=== PATIENT | female | born 1935 | race Caucasian/White ===

== ENCOUNTER 2017-12-31 02:07 | Inpatient (IN) | payer MEDICARE, BC ==
[~2017-12-31] VITALS: Ht 152.4 cm; Wt 50.8 kg
--- NOTE | 2017-12-31 02:10 | NUR ---
GIZZARD SKIN REMOVER HERE TO SEE PT.WHEN I ASKED HER ABOUT PTS MEDS AND ALLERGIES,SHE DID NOT KNOW.INFORMED GIZZARD SKIN REMOVER SHE WOULD NEED TO BRING IN MEDS FOR PT AND SOME MEDICAL INFO.PT AGREED
[2017-12-31] MEDS ORDERED: TRAZODONE 50 MG TABLET PO (02:34)
[2017-12-31] MEDS ORDERED: ATORVASTATIN 10 MG TABLET PO (02:34)
[2017-12-31] MEDS ORDERED: LORAZEPAM 2 MG/1 ML VIAL IM ONE (03:15)
--- NOTE | 2017-12-31 03:21 | NUR ---
Note melisa in ED - 12/31/17 at 0616 by MACKENZIE Pt appears anxious, agitated. Pt is coughing, appears short of breath, tachypneic, respirations labored. MD notified and aware.
[2017-12-31 03:31] LABS: EOSINOPHILS # (AUTO) 0.1 K/uL (0.0-0.7); EOSINOPHILS % (AUTO) 1.6 % (0.0-7.0); HEMATOCRIT 36.8 % (31.2-41.9); HEMOGLOBIN 12.5 g/dL (10.9-14.3); LYMPHOCYTES # (AUTO) 1.2 K/uL (20.0-40.0); LYMPHOCYTES % (AUTO) 25.5 % (20.5-51.5); MEAN CORPUSCULAR HEMOGLOBIN 31.6 uug (24.7-32.8); MEAN CORPUSCULAR HGB CONC 34 g/dL (32.3-35.6); MEAN CORPUSCULAR VOLUME 93.4 fL (75.5-95.3); MONOCYTES # (AUTO) 0.4 K/uL (2.0-10.0); MONOCYTES % (AUTO) 8.3 % (0.0-11.0); NEUTROPHILS % (AUTO) 63.6 % (38.5-71.5); PLATELET COUNT (AUTO) 276 K/uL (179-408); RED BLOOD CELL COUNT(AUTO) 3.94 MIL/uL (3.63-4.92); WHITE BLOOD COUNT (AUTO) 4.7 K/uL (3.8-11.8)
[2017-12-31 03:40] LABS: CARBON DIOXIDE 26 mmol/L (21-32); CHLORIDE 102 mmol/L (98-107); CREATININE 0.9 mg/dL (0.6-1.3); GLUCOSE 186 mg/dL (74-106); POTASSIUM 3.3 mmol/L (3.5-5.1); UREA NITROGEN, BLOOD 27 mg/dL (7-18)
[2017-12-31] MEDS ORDERED: LORAZEPAM 2 MG/1 ML VIAL ONE (03:47)
[2017-12-31 03:54] LABS: ALANINE AMINOTRANSFERASE 23 U/L (14-59); ALKALINE PHOSPHATASE 62 U/L (50-136); ASPARTATE AMINOTRANSFERASE 16 U/L (15-37); BILIRUBIN,DIRECT 0.1 mg/dL (0.0-0.2); BILIRUBIN,TOTAL 0.6 mg/dL (0.2-1.0); TOTAL PROTEIN, SERUM 6.9 g/dL (6.4-8.2)
[2017-12-31 03:55] LABS: THYROID STIMULATING HORMONE 12.287 mIU/mL (0.358-3.740)
[2017-12-31 04:02] LABS: ETHANOL < 3 MG/DL (0-0)
--- NOTE | 2017-12-31 04:31 | NUR ---
JUAN Mills (POWER OF SKULL SPLITTER) [phone]
--- NOTE | 2017-12-31 06:58 | NUR ---
SERAFIN (PT POWER OF BRANCHER) CAME BY TO VISIT PT AND STATED THAT SHE FORGOT TO BRING THE MEDICATION LIST AND WILL CALL ONE OF THE CAREGIVERS TO PROVIDE MED LIST.
[2017-12-31] MEDS ORDERED: ATEN25TA PO (07:41)
[2017-12-31] MEDS ORDERED: DOXY25TA60 PO (07:41)
[2017-12-31] MEDS ORDERED: LEVO75TA7 PO (07:41)
[2017-12-31] MEDS ORDERED: TRIA1TAB4 PO (07:41)
--- NOTE | 2017-12-31 08:25 | NUR ---
REC'D REPORT FROM DEV RN, PT SLEEPING, NO DISTRESS NOTED. AWAITING FOR [employer] ENRICHMENT MANAGER ARRIVAL.
--- NOTE | 2017-12-31 11:56 | NUR ---
PT SLEEPING DIAPER PLACED, BELONGINGS LIST DONE, ADMIT ORDERVBWRITTEN, CALLED [facility] REGARDING BED STATUS SPOKE TO PARUL RN, WHOM STATED DR BARRIOS NEEDED TO RE-EVALUATE THE THE CURRENT PT IN PRIOR TO TRANSFER TO FLOOR AND THEN CLEAN BED AND THEN [facility] WILL CALL ME. PRESENTLY AT THE BEDSIDE THERE IS A CAREGIVER.
--- NOTE | 2017-12-31 13:37 | NUR ---
PT SLEEPING, [facility] OR GLACIER GUIDE STATED RM CHANGE, AT THIS AWAITING FOR NEW RM INFO, CAREGIVER AT BEDSIDE, NO DISTRESS NOTED.
--- NOTE | 2017-12-31 15:10 | NUR ---
SBAR RE[place] TO CHELSY HERNANDEZ [place] [facility] [place] TRANSP[place] [facility]IA [facility] TO RM 137[facility].
[2017-12-31] MEDS ORDERED: MAG HYDROX/AL HYDROX/SIMETH 30 ML LIQUID UDC PO PRN (15:45)
[2017-12-31] MEDS ORDERED: ZOLPIDEM 5 MG TABLET PO PRN (15:45)
[2017-12-31] MEDS ORDERED: MAGNESIUM HYDROXIDE 30 ML LIQUID UDC PO PRN (15:45)
[2017-12-31 16:45] VITALS: BP 116/79
[2017-12-31 20:00] VITALS: BP 110/53
[2017-12-31] MEDS: Z GUARD REMEDY PASTE 57 GM TUBE TOP SCH (20:49)
[2017-12-31] MEDS ORDERED: ATORVASTATIN 10 MG PO SCH (21:00)
[2018-01-01] MEDS: Z GUARD REMEDY PASTE 57 GM TUBE TOP PRN (05:23)
[2018-01-01 07:30] VITALS: BP 152/74
[2018-01-01] MEDS: LORAZEPAM 0.5 MG TABLET PO PRN ×3 (08:02→16:22)
[2018-01-01] MEDS: LEVOTHYROXINE SODIUM 75 MCG TABLET PO SCH (08:23)
[2018-01-01] MEDS: ATENOLOL 25 MG TABLET PO SCH ×2 (08:24→16:32)
[2018-01-01] MEDS: Z GUARD REMEDY PASTE 57 GM TUBE TOP SCH ×2 (08:25→20:04)
[2018-01-01] MEDS: TRIAMTERENE/HCTZ 75-50 MG TABLET PO SCH (09:00)
[2018-01-01] MEDS ORDERED: Medication Not On Formulary EA (Triamterene/Hydrochlorothiazid (Triamterene-Hctz 37.5-25 PO SCH (09:00)
[2018-01-01 16:38] VITALS: BP 120/51
[2018-01-01 19:30] VITALS: BP 151/67
[2018-01-01] MEDS: QUETIAPINE FUMARATE 25 MG TABLET PO SCH (20:04)
[2018-01-01] MEDS: ATORVASTATIN 10 MG TABLET PO SCH (20:04)
[2018-01-01] MEDS: MEMANTINE HCL 5 MG TABLET PO SCH (20:04)
[2018-01-02] MEDS: ACETAMINOPHEN 325 MG TABLET PO PRN (03:10)
[2018-01-02] MEDS: LORAZEPAM 0.5 MG TABLET PO PRN ×3 (03:10→17:34)
[2018-01-02] MEDS: Z GUARD REMEDY PASTE 57 GM TUBE TOP PRN (06:15)
[2018-01-02 07:30] VITALS: BP 120/50
[2018-01-02] MEDS: ATENOLOL 25 MG TABLET PO SCH ×3 (09:00→17:34)
[2018-01-02] MEDS: LEVOTHYROXINE SODIUM 75 MCG TABLET PO SCH ×2 (09:00→13:59)
[2018-01-02] MEDS: TRIAMTERENE/HCTZ 75-50 MG TABLET PO SCH ×2 (09:00→13:59)
[2018-01-02] MEDS: DONEPEZIL 10 MG TABLET PO SCH ×2 (09:00→13:59)
[2018-01-02] MEDS: MEMANTINE HCL 5 MG TABLET PO SCH ×3 (09:00→20:29)
[2018-01-02] MEDS: Z GUARD REMEDY PASTE 57 GM TUBE TOP SCH ×2 (10:09→20:28)
[2018-01-02 15:36] VITALS: BP 110/59
[2018-01-02 19:30] VITALS: BP 135/42
[2018-01-02] MEDS: ATORVASTATIN 10 MG TABLET PO SCH (20:29)
[2018-01-02] MEDS: QUETIAPINE FUMARATE 25 MG TABLET PO SCH (20:30)
[2018-01-03] MEDS: Z GUARD REMEDY PASTE 57 GM TUBE TOP PRN (06:08)
[2018-01-03 07:30] VITALS: BP 141/48
[2018-01-03] MEDS: DONEPEZIL 10 MG TABLET PO SCH (09:05)
[2018-01-03] MEDS: MEMANTINE HCL 5 MG TABLET PO SCH ×2 (09:05→20:01)
[2018-01-03] MEDS: LORAZEPAM 0.5 MG TABLET PO PRN ×2 (09:05→15:45)
[2018-01-03] MEDS: ATENOLOL 25 MG TABLET PO SCH ×2 (09:06→16:25)
[2018-01-03] MEDS: TRIAMTERENE/HCTZ 75-50 MG TABLET PO SCH (09:06)
[2018-01-03] MEDS: LEVOTHYROXINE SODIUM 75 MCG TABLET PO SCH (09:06)
[2018-01-03] MEDS: QUETIAPINE FUMARATE 25 MG TABLET PO SCH ×3 (09:07→20:01)
[2018-01-03] MEDS: Z GUARD REMEDY PASTE 57 GM TUBE TOP SCH ×2 (09:07→20:01)
--- NOTE | 2018-01-03 15:03 | NUR ---
Initial Discharge Instructions: Patient currently resides at home with 24/7 caregiving [[id number] [place] [address]; [phone]]. Spoke with patient's DPOAClaribel ([phone]) who reports the patient can return home with 24/7 care when ready. SW will continue to collaborate with pt, family, and MD regarding appropriate discharge plans for this patient. SW will form a safe and proper discharge plan.
[2018-01-03 16:17] VITALS: BP 108/49
[2018-01-03 20:00] VITALS: BP 112/56
[2018-01-03] MEDS: ATORVASTATIN 10 MG TABLET PO SCH (20:01)
[2018-01-04 07:30] VITALS: BP 152/60
[2018-01-04] MEDS: MEMANTINE HCL 5 MG TABLET PO SCH ×2 (08:28→20:37)
[2018-01-04] MEDS: LEVOTHYROXINE SODIUM 75 MCG TABLET PO SCH (08:28)
[2018-01-04] MEDS: ATENOLOL 25 MG TABLET PO SCH ×2 (08:28→17:08)
[2018-01-04] MEDS: DONEPEZIL 10 MG TABLET PO SCH (08:28)
[2018-01-04] MEDS: QUETIAPINE FUMARATE 25 MG TABLET PO SCH ×2 (08:28→20:37)
[2018-01-04] MEDS: Z GUARD REMEDY PASTE 57 GM TUBE TOP SCH ×2 (08:32→20:57)
[2018-01-04] MEDS: TRIAMTERENE/HCTZ 75-50 MG TABLET PO SCH (08:40)
[2018-01-04] MEDS ORDERED: BISACODYL 5 MG TABLET.DR PO PRN (10:30)
--- NOTE | 2018-01-04 14:46 | NUR ---
Patient is confused, and disorganized. Consumed 75% of meals. no signs of discomfort and pain. no BM for 3 days. SHEEP RANCHER aware. ordered bisacodyl 10mg PRN given. Medication given thru apple sauce. tolerated well. will continue monitor
[2018-01-04 15:32] VITALS: BP 119/65
[2018-01-04 19:30] VITALS: BP 128/48
--- NOTE | 2018-01-04 20:00 | NUR ---
RECEIVED PATIENT IN HER ROOM IN BED. SHE IS NOTED AWAKE, A/O X 1. (TO NAME ONLY) WHEN ASKED, WHERE SHE IS? SHE STATED, "I AM IN A HOTEL, AND I JUST HAD DINNER WITH MY FRIEND AND I AM SUPPOSED TO MEET WITH MY FRIENDS. BRING ME THE PHONE." SHE IS NOTED TANGENTAL, CONFUSED, DISORGANIZED, BLUNTED AFFECT. IMPAIRED INSIGHT AND JUDGMENT NOTED TO THE REASON FOR HER ADMISSION TO [facility]. PATIENT NEEDS ASSISTANCE WITH AMBULATION AND TOILET. WILL TAKE HER MEDICATION CRUSHED AND IN APPLE SAUCE. SAFETY WAS EMPHASIS. BED AT LOWEST POSITION WITH WHEELS LOCKED, SIDE RAIL UP X 3, BED ALARM ON AND FREQUENT HEAD CHECKS.
[2018-01-04] MEDS: ATORVASTATIN 10 MG TABLET PO SCH (20:37)
[2018-01-05 07:12] LABS: CARBON DIOXIDE 24 mmol/L (21-32); CHLORIDE 101 mmol/L (98-107); CREATININE 1.3 mg/dL (0.6-1.3); GLUCOSE 224 mg/dL (74-106); POTASSIUM 4.3 mmol/L (3.5-5.1); UREA NITROGEN, BLOOD 36 mg/dL (7-18)
[2018-01-05 07:30] VITALS: BP 107/59
[2018-01-05] MEDS: ACETAMINOPHEN 325 MG TABLET PO PRN ×2 (08:18→13:47)
[2018-01-05] MEDS: LEVOTHYROXINE SODIUM 75 MCG TABLET PO SCH (08:19)
[2018-01-05] MEDS: MEMANTINE HCL 5 MG TABLET PO SCH ×2 (08:19→21:00)
[2018-01-05] MEDS: Z GUARD REMEDY PASTE 57 GM TUBE TOP SCH ×2 (08:19→20:29)
[2018-01-05] MEDS: DONEPEZIL 10 MG TABLET PO SCH (08:20)
[2018-01-05] MEDS: QUETIAPINE FUMARATE 25 MG TABLET PO SCH ×2 (08:20→21:00)
[2018-01-05] MEDS: ATENOLOL 25 MG TABLET PO SCH ×2 (08:28→16:58)
[2018-01-05] MEDS: TRIAMTERENE/HCTZ 75-50 MG TABLET PO SCH (08:28)
[2018-01-05] MEDS: LORAZEPAM 0.5 MG TABLET PO PRN (13:48)
--- NOTE | 2018-01-05 15:16 | NUR ---
Gps/Lvn0 Moans , calling out , c/o lower back pain, unable to fine right position. Offered tylenol 650 mg with lower ext. elevated on foot rest. ,kept comfortable, claimed she's too cold extra blanket offered to keep her warm, patient fell asleep after.
--- NOTE | 2018-01-05 19:45 | NUR ---
RECEIVED PATIENT IN THE HALLWAY SITTING IN A CLARICE CHAIR SLEEPING BUT EASILY AROUSABLE. SHE IS NOTED A/O X 1, CONFUSED, DISORGANIZED. FLAT AFFECT, LOW MOOD NOTED. IMPAIRED INSIGHT NOTED INTO THE REASON FOR HER ADMISSION. SAFETY EMPHASIS. WILL CONTINUE TO MONITOR.
[2018-01-05 20:00] VITALS: BP 108/41
[2018-01-05] MEDS: ATORVASTATIN 10 MG TABLET PO SCH (21:00)
--- NOTE | 2018-01-05 21:45 | NUR ---
Nurse Trailer Chief was notified of doctor's order of transferring patient to the ER.
--- NOTE | 2018-01-05 22:00 | NUR ---
Approach patient to give the medication at 2044. the patient was lethargic, unable to response verbally, unable to drink, unable to take medications, only moving her legs, and some resistance on her hands. vital signs was taken, BP:96/49, HR:51, O2 SAT:100%, RR:18. Legs of the bed were elevated. Checked again at 2099, VS was BP:97/46, HR:53, O2 SAT:99%, RR:18, she continued to be lethargic, unable to drink, unable to response verbally, only moving lower extremities and some resistance on her hands. Called cogeneration operator Doctor Brent Huerta at 2129 and according to doctors' order, the patient was transferred to the ER at 2139. VS at time of transferring to the ER was BP:133/49, HR:53, O2 SAT:100%, RR:18.
--- NOTE | 2018-01-06 01:14 | NUR ---
RECEIVED A CALL FROM NURSE IN THE ER. PATIENT WILL BE ADMITTED TO TELE UNIT ROOM 228 WITH ANDREEA PULIDO. PATIENT STILL ON 14 DA[address] HOLD[address] WILL NOTIFY DR BARRIOS.
[2018-01-06] MEDS ORDERED: BISA10SU8 RC (01:31)
[2018-01-06] MEDS ORDERED: QUET25TA PO (01:31)
[2018-01-06] MEDS ORDERED: MEMA5TAB PO (01:31)
[2018-01-06] MEDS ORDERED: MAGN400O6 PO (01:31)
[2018-01-06] MEDS ORDERED: TRIA1TAB5 PO (01:31)
[2018-01-06] MEDS ORDERED: LORA0.5T PO (01:31)
[2018-01-06] MEDS ORDERED: DONE5TAB7 PO (01:31)
[2018-01-06] MEDS ORDERED: MAG355OR18 PO (01:31)
--- NOTE | 2018-01-06 11:14 | NUR ---
Firearms Report: Desktop Publishing Operator completed and submitted [employer] Firearms report on 01/06/18 for [address] Disability Certification.
== END 2018-01-06 01:19 | disposition short-term general hospital (02) | DRG 885 ==
LOC: ER 02:11 → GPS 15:01
PROVIDERS: ADMIT Psychiatry & Neurology Psychiatry; ATTEND Internal Medicine
DX: F29 Unspecified psychosis not due to a substance or known physiological condition (principal); F03.91 Unspecified dementia, unspecified severity, with behavioral disturbance; G47.00 Insomnia, unspecified; Z91.83 Wandering in diseases classified elsewhere; E03.9 Hypothyroidism, unspecified; E78.5 Hyperlipidemia, unspecified; I10 Essential (primary) hypertension; F41.9 Anxiety disorder, unspecified; N28.9 Disorder of kidney and ureter, unspecified; F41.0 Panic disorder [episodic paroxysmal anxiety]; E87.6 Hypokalemia; Z79.899 Other long term (current) drug therapy
CPT/HCPCS: 36415; 70450; 71045; 82306; 83605; 84443; 85025; 85730; 87040; 93005; 97110; 97116; 97530; A4663; G0480; J2060

== ENCOUNTER 2018-01-05 21:45 | Inpatient (IN) | payer MEDICARE, BC ==
[~2018-01-05] VITALS: Ht 165.1 cm; Wt 53.1 kg
[~2018-01-05 21:45] MED LIST: ATEN25TA PO; ATORVASTATIN 10 MG TABLET PO; DOXY25TA60 PO; LEVO75TA7 PO; TRAZODONE 50 MG TABLET PO; TRIA1TAB4 PO
[2018-01-05 22:08] LABS: BASOPHILS # (AUTO) 0.1 K/uL (0.0-8.0); EOSINOPHILS # (AUTO) 0.1 K/uL (0.0-0.7); EOSINOPHILS % (AUTO) 1.9 % (0.0-7.0); HEMATOCRIT 40.4 % (31.2-41.9); HEMOGLOBIN 13.5 g/dL (10.9-14.3); LYMPHOCYTES # (AUTO) 2.2 K/uL (20.0-40.0); LYMPHOCYTES % (AUTO) 32.7 % (20.5-51.5); MEAN CORPUSCULAR HEMOGLOBIN 31.3 uug (24.7-32.8); MEAN CORPUSCULAR HGB CONC 33 g/dL (32.3-35.6); MEAN CORPUSCULAR VOLUME 93.8 fL (75.5-95.3); MONOCYTES # (AUTO) 0.7 K/uL (2.0-10.0); MONOCYTES % (AUTO) 10.8 % (0.0-11.0); NEUTROPHILS # (AUTO) 3.6 K/uL (1.8-8.9); NEUTROPHILS % (AUTO) 53.6 % (38.5-71.5); PLATELET COUNT (AUTO) 248 K/uL (179-408); WHITE BLOOD COUNT (AUTO) 6.8 K/uL (3.8-11.8)
[2018-01-05] MEDS ORDERED: IV NORMAL SALINE 1000 ML BAG IV ONE (22:15)
[2018-01-05] MEDS ORDERED: VANCOMYCIN IV 1,000 MG in IV DEXTROSE 5% 250 ML IV ONE (22:15)
[2018-01-05] MEDS ORDERED: GENTAMICIN SULFATE INJ 80 MG in IV DEXTROSE 5% 100 ML IV ONE (22:15)
[2018-01-05] MEDS ORDERED: CEFTRIAXONE 1 G in IV DEXTROSE 5% 50 ML IV ONE (22:15)
[2018-01-05 22:19] LABS: CARBON DIOXIDE 28 mmol/L (21-32); CHLORIDE 100 mmol/L (98-107); CREATININE 1.4 mg/dL (0.6-1.3); GLUCOSE 249 mg/dL (74-106); POTASSIUM 4.6 mmol/L (3.5-5.1); UREA NITROGEN, BLOOD 47 mg/dL (7-18)
[2018-01-05 22:24] LABS: ALANINE AMINOTRANSFERASE 24 U/L (14-59); ALKALINE PHOSPHATASE 71 U/L (50-136); ASPARTATE AMINOTRANSFERASE 21 U/L (15-37); BILIRUBIN,DIRECT 0.1 mg/dL (0.0-0.2); BILIRUBIN,TOTAL 0.6 mg/dL (0.2-1.0); TOTAL PROTEIN, SERUM 7.1 g/dL (6.4-8.2)
[2018-01-05] MEDS ORDERED: CEFTRIAXONE 1 G VIAL ONE (22:31)
[2018-01-05 22:43] LABS: THYROID STIMULATING HORMONE 5.896 mIU/mL (0.358-3.740)
[2018-01-05] MEDS ORDERED: VANCOMYCIN IV 200 ML ONE (23:00)
[2018-01-05 23:04] LABS: *BILIRUBIN,URIN NEGATIVE (NEGATIVE); *BLOOD, URINE Trace-intact (NEGATIVE); *CLARITY,URINE CLEAR (CLEAR); *COLOR,URINE YELLOW (YELLOW); *KETONES,URINE NEGATIVE (NEGATIVE); *PROTEIN,URINE NEGATIVE (NEGATIVE); *UROBILINOGEN,URINE 0.2 E.U./dl (NORMAL); LEUKOCYTE ESTERASE ,URINE 1+ (NEGATIVE); NITRITE, URINE NEGATIVE (NEGATIVE)
[2018-01-05 23:16] LABS: UGLUCOSE 1+ (NEGATIVE)
[2018-01-05 23:25] LABS: BACTERIA,URINE FEW /HPF (NONE SEEN); SQUAMOUS EPITHELIAL CELL,UR FEW /HPF (NONE SEEN)
[2018-01-05 23:26] LABS: MUCUS,URINE FEW /LPF (0-FEW)
[2018-01-06] MEDS ORDERED: GENTAMICIN SULFATE 80 MG/2 ML VIAL ONE (00:30)
[2018-01-06] MEDS ORDERED: TRIA1TAB5 PO (01:31)
[2018-01-06] MEDS ORDERED: MAGN400O6 PO (01:31)
[2018-01-06] MEDS ORDERED: DONE5TAB7 PO (01:31)
[2018-01-06] MEDS ORDERED: BISA10SU8 RC (01:31)
[2018-01-06] MEDS ORDERED: MEMA5TAB PO (01:31)
[2018-01-06] MEDS ORDERED: QUET25TA PO (01:31)
[2018-01-06] MEDS ORDERED: MAG355OR18 PO (01:31)
[2018-01-06] MEDS ORDERED: LORA0.5T PO (01:31)
[2018-01-06 01:51] VITALS: BP 114/46
[2018-01-06] MEDS ORDERED: MAG HYDROX/AL HYDROX/SIMETH 30 ML LIQUID UDC PO PRN (03:30)
[2018-01-06] MEDS ORDERED: MAGNESIUM HYDROXIDE 30 ML LIQUID UDC PO PRN ×2 (03:30)
[2018-01-06] MEDS ORDERED: ACETAMINOPHEN 325 MG TABLET PO PRN (03:30)
[2018-01-06] MEDS ORDERED: BISACODYL 10 MG SUPP.RECT RC PRN (03:30)
[2018-01-06] MEDS ORDERED: Z GUARD REMEDY PASTE 57 GM TUBE TOP PRN (03:30)
[2018-01-06] MEDS ORDERED: LORAZEPAM 0.5 MG TABLET PO PRN (03:30)
[2018-01-06] MEDS ORDERED: ZOLPIDEM 5 MG TABLET PO PRN (03:30)
[2018-01-06] MEDS ORDERED: ONDANSETRON 4 MG/2 ML VIAL IV PRN (03:30)
[2018-01-06] MEDS ORDERED: HYDROCODONE/APAP 5-325MG TABLET PO PRN (03:30)
[2018-01-06] MEDS: LEVOTHYROXINE SODIUM 75 MCG TABLET PO SCH (06:49)
[2018-01-06] MEDS ORDERED: INSULIN REGULAR, HUMAN 300 UNIT/3 ML VIAL SQ PRN (08:30)
[2018-01-06] MEDS ORDERED: DEXTROSE 50% 50 ML DISP.SYRIN IV PRN (08:30)
[2018-01-06] MEDS: ATENOLOL 25 MG TABLET PO SCH ×2 (08:37→16:39)
[2018-01-06] MEDS: DONEPEZIL 5 MG TABLET PO SCH (08:38)
[2018-01-06] MEDS: MEMANTINE HCL 5 MG TABLET PO SCH ×2 (08:38→16:38)
[2018-01-06] MEDS: HEPARIN SODIUM,PORCINE 5,000 UNITS/ML VIAL SQ SCH ×2 (08:40→20:17)
[2018-01-06] MEDS ORDERED: TRIAMTERENE/HCTZ 75-50 MG TABLET PO SCH (09:00)
[2018-01-06] MEDS ORDERED: PANTOPRAZOLE SODIUM 40 MG VIAL IV SCH ×2 (09:00→09:05)
[2018-01-06 09:37] LABS: *CREATININE,URINE 114.1 mg/dL (30-125); *URINE TOTAL PROTEIN RANDOM 14.2 mg/dL (<150/24HR)
[2018-01-06 10:45] VITALS: BP 105/51
[2018-01-06] MEDS: ASPIRIN 81 MG TAB.CHEW PO SCH (12:15)
[2018-01-06] MEDS: BLOOD SUGAR DIAGNOSTIC 1 EACH STRIP VI SCH ×3 (12:23→20:13)
[2018-01-06] MEDS: IV NS 1000 ML 1,000 ML IV PRN (12:25)
[2018-01-06 16:00] VITALS: BP 144/60
[2018-01-06 19:30] VITALS: BP 134/48
[2018-01-06] MEDS ORDERED: CEFTRIAXONE 1 G in IV DEXTROSE 5% 50 ML IV SCH (21:00)
[2018-01-06] MEDS ORDERED: ATORVASTATIN 10 MG TABLET PO SCH (21:00)
[2018-01-06] MEDS ORDERED: QUETIAPINE FUMARATE 25 MG TABLET PO SCH (21:00)
[2018-01-07] VITALS: BP 107/45
[2018-01-07] MEDS: IV NS 1000 ML 1,000 ML IV PRN (02:47)
[2018-01-07 05:41] VITALS: BP 128/45
[2018-01-07] MEDS: LEVOTHYROXINE SODIUM 75 MCG TABLET PO SCH (06:32)
[2018-01-07] MEDS: BLOOD SUGAR DIAGNOSTIC 1 EACH STRIP VI SCH ×2 (06:32→11:23)
[2018-01-07 07:10] LABS: BASOPHILS # (AUTO) 0.1 K/uL (0.0-8.0); EOSINOPHILS # (AUTO) 0.2 K/uL (0.0-0.7); EOSINOPHILS % (AUTO) 3.4 % (0.0-7.0); HEMATOCRIT 36.4 % (31.2-41.9); HEMOGLOBIN 12.2 g/dL (10.9-14.3); LYMPHOCYTES # (AUTO) 2.8 K/uL (20.0-40.0); LYMPHOCYTES % (AUTO) 44.3 % (20.5-51.5); MEAN CORPUSCULAR HEMOGLOBIN 30.8 uug (24.7-32.8); MEAN CORPUSCULAR HGB CONC 33 g/dL (32.3-35.6); MEAN CORPUSCULAR VOLUME 92.1 fL (75.5-95.3); MONOCYTES # (AUTO) 0.5 K/uL (2.0-10.0); NEUTROPHILS # (AUTO) 2.7 K/uL (1.8-8.9); NEUTROPHILS % (AUTO) 43.3 % (38.5-71.5); PLATELET COUNT (AUTO) 215 K/uL (179-408); RED BLOOD CELL COUNT(AUTO) 3.95 MIL/uL (3.63-4.92); WHITE BLOOD COUNT (AUTO) 6.2 K/uL (3.8-11.8)
[2018-01-07 07:36] LABS: ALANINE AMINOTRANSFERASE 18 U/L (14-59); ALKALINE PHOSPHATASE 56 U/L (50-136); ASPARTATE AMINOTRANSFERASE 24 U/L (15-37); BILIRUBIN,TOTAL 0.5 mg/dL (0.2-1.0); CARBON DIOXIDE 23 mmol/L (21-32); CHLORIDE 109 mmol/L (98-107); CREATINE KINASE, TOTAL 140 U/L (26-192); CREATININE 0.8 mg/dL (0.6-1.3); GLUCOSE 86 mg/dL (74-106); MAGNESIUM 1.9 mg/dL (1.8-2.4); PHOSPHOROUS 3.4 mg/dL (2.5-4.9); POTASSIUM 4.3 mmol/L (3.5-5.1); TOTAL PROTEIN, SERUM 5.8 g/dL (6.4-8.2); UREA NITROGEN, BLOOD 25 mg/dL (7-18)
[2018-01-07 07:49] LABS: CHOLESTEROL 137 mg/dL (<200); HDL CHOLESTEROL 37 mg/dL (40-60); TRIGLYCERIDES 99 MG/DL (30-150)
[2018-01-07 08:00] VITALS: BP 135/51
[2018-01-07 08:36] VITALS: BP 115/51
[2018-01-07] MEDS: DONEPEZIL 5 MG TABLET PO SCH (08:36)
[2018-01-07] MEDS: MEMANTINE HCL 5 MG TABLET PO SCH (08:36)
[2018-01-07] MEDS: ASPIRIN 81 MG TAB.CHEW PO SCH (08:36)
[2018-01-07] MEDS: ATENOLOL 25 MG TABLET PO SCH (08:36)
[2018-01-07] MEDS: HEPARIN SODIUM,PORCINE 5,000 UNITS/ML VIAL SQ SCH (08:45)
[2018-01-08] MEDS ORDERED: PANTOPRAZOLE SODIUM 40 MG TABLET.DR PO SCH (07:00)
[2018-01-10 08:47] LABS: A/G RATIO 1.2 (0.7-1.7); ALBUMIN 2.8 g/dL (2.9-4.4); ALPHA-1-GLOBULIN 0.2 g/dL (0.0-0.4); ALPHA-2-GLOBULIN 0.7 g/dL (0.4-1.0); BETA GLOBULIN 0.6 g/dL (0.7-1.3); GAMMA GLOBULIN 0.8 g/dL (0.4-1.8); GLOBULIN, TOTAL 2.4 g/dL (2.2-3.9); M-SPIKE Not Observed g/dL (Not Observed)
== END 2018-01-07 12:45 | disposition home or self-care (01) | DRG 280 ==
LOC: ER 21:48 → TELE 01-06 00:48 → MED 01-07 11:05
PROVIDERS: ADMIT Hospitalist; ATTEND Nurse Practitioner Acute Care
DX: I21.4 Non-ST elevation (NSTEMI) myocardial infarction (principal); N17.0 Acute kidney failure with tubular necrosis; G93.41 Metabolic encephalopathy; N39.0 Urinary tract infection, site not specified; B96.20 Unspecified Escherichia coli [E. coli] as the cause of diseases classified elsewhere; Z16.11 Resistance to penicillins; Z16.29 Resistance to other single specified antibiotic; E03.9 Hypothyroidism, unspecified; F41.9 Anxiety disorder, unspecified; E78.5 Hyperlipidemia, unspecified; G47.00 Insomnia, unspecified; R55 Syncope and collapse; E11.65 Type 2 diabetes mellitus with hyperglycemia; F03.90 Unspecified dementia, unspecified severity, without behavioral disturbance, psychotic disturbance, mood disturbance, and anxiety; I11.9 Hypertensive heart disease without heart failure; Z79.899 Other long term (current) drug therapy; R94.31 Abnormal electrocardiogram [ECG] [EKG]
CPT/HCPCS: 36415; 70030-TC; 70450; 71045; 83605; 83735; 83970; 84100; 84155; 84156; 84165; 84300; 84443; 85025; 85730; 87040; 87077; 87086; 93005; 93307; A4663; C9113; J0696; J1580; J1644; J1815; J3370; J7030; J7060